=== PATIENT | female | born 1965 | race Caucasian/White ===

== ENCOUNTER → 2019-11-29 08:20 | Day surgery (SDC) | payer OTHER ==
[~2019-11-29 08:20] MED LIST: Buffered Lidocaine 1% SYRIN* 1 ML/SYRINGE INTRADERM ONE; Bupivacaine 0.5% W/EPI SDV* 10 ML VIAL INJ ONE; HYDROmorphone INJ1* 1 MG/ML SYRINGE IV PRN; Lidocaine 2.5%/Prilocain 2.5%* 5 GM TUBE ONE; Naloxone* 0.4 MG/ML 1 ML VIAL IV PRN; Ondansetron INJ* 2 MG/ML VIAL IV PRN; PROCHLORPERAZINE INJ 5 MG/ML 2 ML VIAL IV PRN; ceFAZolin 2 GM in NS PREMIX(*) 2 GM/100 ML BAG IVPB ONE
--- NOTE | 2019-11-29 12:44 | BRIEFOPN ---
Brief Operative/Procedure Note - Operation Details Pre-Op Diagnosis: Left breast mammographic abnormality Post-Op Diagnosis: same Procedures: needle localization excision of left breast mammographic abnormality Surgeon(s)/Proceduralists: Surgeon: Jeramie. Asst: Belen Anesthesia: general Estimated Blood Loss: 3 cc Findings: see dictation Specimen(s)/Culture(s) Description: left breast tissue. left breast tissue adjacent and medial to first specimen Complications: none
[2019-11-29 13:22] VITALS: BP 131/94
--- NOTE | 2019-11-30 01:08 | OP ---
CC: Dr. Charissa Briceño * DATE OF OPERATION: 11/29/19 - [facility] DATE OF : 67 SURGEON: Jillian Bobo MD. [employer] WORKER: TOÑITO Glover PRE-OP DIAGNOSIS: Left breast mammographic abnormality. POST-OP DIAGNOSIS: Left breast mammographic abnormality. OPERATIVE PROCEDURE: Needle localization, excision of left breast mammographic abnormality. INDICATIONS: Ms. Pittman is a 54-year-old woman recently identified as having a changing mammographic abnormality prompting the plan for surgical intervention. DESCRIPTION OF PROCEDURE: On the morning of surgery, she underwent needle localization without difficulty and then was brought to the operating room. She was placed on the OR table in a supine position and given general anesthesia. The left breast was prepped and draped in the usual sterile fashion taking care not to dislodge the localizing wire. After infiltrating with local anesthetic, a curvilinear elliptical incision encompassing the wire was made and subcutaneous tissue was divided with electrocautery to excise the mass of tissue from around the wire. It was noted that the wire protruded from the deep, which was medial aspect of the specimen. So, the decision was made to remove some additional tissue as well. The specimen containing the wire was marked in the usual fashion and handed off. The additional tissue medial to the first specimen was grasped with an Allis clamp and then electrocautery was used to excise a mass of tissue from medial to the first specimen. This was also marked in the usual fashion with an additional Prolene stitch marking the surface that was adjacent to the first specimen. Once it was removed, it was handed off as a specimen also, and then the wound was inspected for hemostasis. Hemostasis was achieved with electrocautery and once this appeared adequate, the wound was irrigated copiously with saline. Clips were placed in the cavity to margarito its confines and then additional local was instilled into the cavity. Closure was then accomplished with 3-0 Vicryl in the subcutaneous layer and the skin was closed with 4-0 Prolene in a subcuticular fashion. Steri- Strips and a dry sterile dressing were applied. All sponge and instrument counts were correct. The patient tolerated the procedure well and was transferred to recovery in a stable condition. [id number]/[facility] #: [id number] [facility]
== END | disposition home or self-care (01) ==
LOC: SDS 08:20
PROVIDERS: ATTEND Surgery
DX: R92.8 Other abnormal and inconclusive findings on diagnostic imaging of breast (principal); N60.12 Diffuse cystic mastopathy of left breast; R92.0 Mammographic microcalcification found on diagnostic imaging of breast; R92.1 Mammographic calcification found on diagnostic imaging of breast; I10 Essential (primary) hypertension; J45.909 Unspecified asthma, uncomplicated; Z87.891 Personal history of nicotine dependence; K21.9 Gastro-esophageal reflux disease without esophagitis; E66.01 Morbid (severe) obesity due to excess calories; E78.5 Hyperlipidemia, unspecified
CPT/HCPCS: 88307; A9270-GY; J0690; J1100; J1170; J2405; J2704